=== PATIENT | female | born 1940 | race Caucasian/White ===

== ENCOUNTER → 2017-03-22 | Outpatient (CLI) | payer MEDICARE, OTHER ==
--- NOTE | ~2017-03-22 | CT57 ---
[facility] A Service of [facility] & [facility] RADIOLOGY TEXT RESULTS PATIENT: JOSE BHAKTA [facility] : 40 UNIT #: [id number] AGE: [address]: Tamara Coyle SEX: F ORDER DR: [id number] [facility] [address] [place], [place] [address] [id number] O MR#: [id number] Acc #: [id number] NAME: JOSE BHAKTA : 1940 SEX: F STUDY DATE/TIME: 03/22/2017 11:08 [facility]IT: [facility] ROOM: STUDY DESCRIPTION: CT Chest Wo Cont Attending Physician: Tamara Coyle A.P.R.N. Referring Physician: Tamara Coyle A.P.R.N. Ordering Physician: Tamara Coyle A.P.R.N. Primary Care Physician: Ahmet Sanchez M.D. MEDICAL IMAGING REPORT This report is preliminary unless electronic signature is present EXAM CT chest without contrast. DATE 03/22/2017 HISTORY 76-year-old female with abnormal PET scan. Follow up ground-glass nodule. Cough and congestion for 2 weeks per patient. History of right breast cancer in 2014, with chemotherapy. Hypertension. Diabetes. COMPARISON PET/CT 12/09/2016. CT chest without contrast 11/26/2016. PROCEDURE 2 mm axial images through the chest without IV contrast. Sagittal and coronal reformatted images were obtained. This CT exam was performed with one or more of the following radiation dose reduction techniques: automatic exposure control, adjustment of mA and/or kV according to patient size, and iterative reconstruction. FINDINGS 1.6 x 1.0 cm noncalcified nodular density is redemonstrated within the posterior right lower lobe (series 4, image 90). It has a slightly more dense appearance on today's examination, likely due to thinner slice selection. So far morphology is not thought to be significantly changed from 11/26/2016. 6 mm noncalcified nodule is demonstrated within the posterior right lower lobe (series 4, image 93), not definitely seen on prior studies. No left lung nodules are seen. Chronic-appearing linear scarring within the right middle lobe and inferior left upper lobe in the lingular STS. [facility] A Service of [facility] RADIOLOGY TEXT RESULTS PATIENT: JOSE BHAKTA LOCATION: [facility] : 40 UNIT #: [id number] AGE: [address]: Tamara Coyle SEX: F ORDER DR: segment, unchanged. No focal lung consolidations are identified. A 7 mm short-axis AP window lymph node is stable. No new suspicious adenopathy is seen. Thyroid gland within normal limits. Benign calcified granulomatous changes in the right hilum. No suspicious osteolytic or osteoblastic lesions or acute osseous abnormalities are identified. IMPRESSION 1. Macro-lobulated nodular density in the posterior right lower lobe measuring 1.6 x 0.9 cm appears stable in size compared to the most remote available study at this institution dated 11/26/2016. This demonstrated no significant FDG uptake on the recent November 2016 PET/CT. Continued attention at 6-month surveillance imaging would be recommended. 2. There is a new 6 mm noncalcified nodule in the posterior right lower lobe which is a new finding since the previous examination. Both benign and malignant etiologies remain in the differential. It is too small to resolve with PET technique and is too small for percutaneous biopsy. Again, attention at this nodule at surveillance imaging would be recommended. 3. Chronic linear scarring within the right middle lobe and lingula. 4. Benign calcified granulomatous changes in the right hilum. Dictated by... Arely Porter M.D. THIS IS AN ELECTRONICALLY VERIFIED REPORT Arely Porter M.D. at 03/23/2017 2:10 PM DERECK/star TD: 03/22/2017 21:23 JOB #: [id number] MEDICAL IMAGING REPORT Page 1 of 1 COPY
== END | disposition home or self-care (01) ==
LOC: CCAT 10:08
DX: R93.8 Abnormal findings on diagnostic imaging of other specified body structures (principal); J98.4 Other disorders of lung; R91.8 Other nonspecific abnormal finding of lung field; J84.10 Pulmonary fibrosis, unspecified
CPT/HCPCS: 71250